=== PATIENT | female | born 1965 | race Hispanic/Latino ===

== ENCOUNTER → 2019-07-28 | Outpatient (CLI) | payer OTHER ==
--- NOTE | 2019-07-28 16:23 | Diagnostic Imaging Report ---
Thoracic spine, 3 views. History: Upper back pain. Findings: The alignment of the thoracic spine is normal. There is no evidence of fracture or subluxation. The intervertebral disc spaces are normal limits. No evidence of lytic or sclerotic lesion. The paraspinal soft tissues are unremarkable IMPRESSION: Normal thoracic spine. Signed by: Eron Mojica on 07/28/2019 4:20 PM
== END ==
LOC: RAD 13:20
PROVIDERS: ATTEND Internal Medicine
DX: M54.6 Pain in thoracic spine (principal)
CPT/HCPCS: 72070